=== PATIENT | female | born 1965 | race Caucasian/White ===

== ENCOUNTER 2018-04-26 12:33 | Emergency (ER) | payer BC ==
[2018-04-26 12:39] VITALS: BP 133/63; PULSE 118; RESP 20; TEMP 98.5; O2SAT 99
--- NOTE | 2018-04-26 14:52 | RADRPT ---
EXAM DATE: 04/26/2018 1:33 PM EDT AGE/SEX: 53 years / Female INDICATIONS: Fall. Fracture. Knees gave out and fell today. Left leg spasms. CLINICAL DATA: This is the patient's initial encounter. Patient reports that signs and symptoms have been present for 1 day and indicates a pain score of 7/10. MEDICAL/SURGICAL HISTORY: . Previous spinal cord injury. None. COMPARISON: No prior exams available for comparison. FINDINGS: There is diffuse soft tissue swelling around the left ankle. This is predominantly laterally. The ank le mortise is intact. No acute fracture is seen. CONCLUSION: Diffuse soft tissue swelling. No definite ankle fracture identified. Electronically signed by: Galen Monroy MD 04/26/2018 2:51 PM EDT
--- NOTE | 2018-04-26 14:55 | RADRPT ---
EXAM DATE: 04/26/2018 1:42 PM EDT AGE/SEX: 53 years / Female INDICATIONS: Fall. Fracture. Knees gave out and fell today. Left leg spasms. CLINICAL DATA: This is the patient's initial encounter. Patient reports that signs and symptoms have been present for 1 day and indicates a pain score of 5/10. MEDICAL/SURGICAL HISTORY: . Previous spinal cord injury. None. COMPARISON: No prior exams available for comparison. FINDINGS: Bony structures are intact and in normal alignment. Joints are intact without dislocation or signifi cant arthropathy. Osseous density is decreased. Soft tissues are unremarkable. No radiopaque forei gn bodies seen. CONCLUSION: 1. Osteopenia. 2. No acute fracture or dislocation. Electronically signed by: Chapincito Santamaria MD 04/26/2018 2:54 PM EDT
--- NOTE | 2018-04-26 15:02 | RADRPT ---
EXAM DATE: 04/26/2018 1:48 PM EDT AGE/SEX: 53 years / Female INDICATIONS: Fall. Fracture. Knees gave out and fell today. Left leg spasms. CLINICAL DATA: This is the patient's initial encounter. Patient reports that signs and symptoms have been present for 1 day and indicates a pain score of 4/10. MEDICAL/SURGICAL HISTORY: . Previous spinal cord injury. None. COMPARISON: No prior exams available for comparison. FINDINGS: Bony structures are intact and in normal alignment. Joints are intact without dislocation or signifi cant arthropathy. Osseous density is decreased. Soft tissues are unremarkable. No radiopaque forei gn bodies seen. CONCLUSION: 1. Osteopenia. 2. No acute fracture or dislocation. Electronically signed by: Chapincito Santamaria MD 04/26/2018 3:01 PM EDT
--- NOTE | 2018-04-26 15:07 | RADRPT ---
EXAM DATE: 04/26/2018 1:45 PM EDT AGE/SEX: 53 years / Female INDICATIONS: Fall. Fracture. Knees gave out and fell today. Left leg spasms. CLINICAL DATA: This is the patient's initial encounter. Patient reports that signs and symptoms have been present for 1 day and indicates a pain score of 6/10. MEDICAL/SURGICAL HISTORY: . Previous spinal cord injury. None. COMPARISON: No prior exams available for comparison. FINDINGS: The osseous structures of the right knee are intact. There are mild degenerative changes in the media l compartment. The alignment is anatomic. No acute fracture seen. No joint effusion is evident. CONCLUSION: No acute bony abnormality identified. Mild degenerative changes in the medial joint compartment. Electronically signed by: Galen Monroy MD 04/26/2018 3:05 PM EDT
--- NOTE | 2018-04-26 17:26 | PD ---
HPI Chief Complaint: Injury Time Seen by Provider: 15:09 Travel History International Travel<30 days: No Contact w/Intl Traveler<30days: No Traveled to known affect area: No History of Present Illness HPI The patient was seen and examined in the presence of the nurse. This patient had a fall today. Her knees buckled and she twisted her left ankle. Her chief complaint is left ankle pain. No head or neck injury. She has history of spinal cord injury and her knees buckling is a common occurrence. [facility] Social History Alcohol Use: No Tobacco Use: No Substance Use: No Allergies-Medications (Allergen,Severity, Reaction): Coded Allergies: No Known Allergies (Unverified , 04/26/18) Review of Systems General / Constitutional: No: Fever HENT: No: Headaches Cardiovascular: No: Chest Pain or Discomfort Respiratory: No: Cough Physical Exam Narrative GASTROINTESTINAL: Abdomen soft, non-tender, nondistended. Positive bowel sounds. No hepato-splenomegaly, or palpable masses. No guarding. NEUROLOGICAL: Awake and alert. Pupils are equal round and reactive. Motor grossly within normal limits. Five out of 5 muscle strength in all muscle groups. Normal speech. Diminished sensation subjectively in both feet which is chronic per patient SKIN: Focused skin assessment reveals no rash or ulcers. Skin is warm and dry. Palpation shows no induration or nodules. Left ankle: There is some soft tissue swelling about it but no deformity. Data Data Last Documented VS Vital Signs Date Time Temp Pulse Resp B/P (MAP) Pulse Ox O2 Delivery O2 Flow Rate FiO2 04/26/18 15:40 16 100 Room Air 04/26/18 12:39 98.5 118 133/63 (86) Orders Orders Ankle, Complete ([id number]) (04/26/18 ) Knee, Complete (4vws) (04/26/18 ) Knee, Complete (4vws) (04/26/18 ) Hip, Uni(Ap&Lat) W Ap Pelvis (04/26/18 ) Crutches (04/26/18 15:37) Splint Or Brace Apply/Monitor (04/26/18 15:38) Brace Ankle Stirrup (04/26/18 ) MDM Medical Decision Making Medical Screen Exam Complete: Yes Emergency Medical Condition: Yes Medical Record Reviewed: Yes Differential Diagnosis Ankle sprain, ankle fracture, contusion Narrative Course I have reviewed the patient's electronic medical record. X-ray survey was done. Left ankle show soft tissue swelling without fracture. Both knees and the hip was done as well with no acute fracture We gave her crutches as well as a left ankle stirrup splint. Supportive care discussed. She will be given a trial of walking with crutches here in the ER to make sure she can deal with them appropriately. Diagnosis Primary Impression: Inversion sprain of left ankle Qualified Codes: S93.402A - Sprain of unspecified ligament of left ankle, initial encounter Additional Impression: Multiple contusions Additional Instructions: The patient was advised to follow up with their physician and return if they worsen. Med/Other Pt SpecificInfo: Other Disposition: 01 DISCHARGE HOME Condition: Stable Josh Lundberg MD Apr 26, 2018 17:26
== END 2018-04-26 18:00 | disposition home or self-care (01) ==
LOC: NEPE 12:33
DX: S93.402A Sprain of unspecified ligament of left ankle, initial encounter (principal); T14.8XXA Other injury of unspecified body region, initial encounter; W19.XXXA Unspecified fall, initial encounter
CPT/HCPCS: 73502; 73564; 73610; 99283; E0113; L1906